=== PATIENT | male | born 1955 | race Caucasian/White ===

== ENCOUNTER → 2022-01-01 08:15 | Outpatient (BNVA) | payer OTHER, MEDICARE, SELFPAY | PROVIDERS: PCP Family Medicine; Visit Provider Psychiatry & Neurology Neurology | DX: G20 Parkinson's disease (principal); G47.52 REM sleep behavior disorder; R44.3 Hallucinations, unspecified | CPT/HCPCS: 99212 ==

== ENCOUNTER → 2022-06-25 08:12 | Outpatient (BNVA) | payer MEDICARE, SELFPAY | PROVIDERS: PCP Family Medicine; Visit Provider Psychiatry & Neurology Neurology | DX: G20 Parkinson's disease (principal); R44.3 Hallucinations, unspecified; G47.52 REM sleep behavior disorder | CPT/HCPCS: 99212 ==

== ENCOUNTER → 2023-01-31 11:13 | Outpatient (BNVA) | payer MEDICARE, SELFPAY | PROVIDERS: PCP Family Medicine; Visit Provider Psychiatry & Neurology Neurology | DX: G20 Parkinson's disease (principal); G47.52 REM sleep behavior disorder; R44.3 Hallucinations, unspecified | CPT/HCPCS: 99212 ==

== ENCOUNTER → 2023-04-08 12:59 | Outpatient (BNVA) | payer OTHER, SELFPAY | PROVIDERS: PCP Family Medicine; Visit Provider Psychiatry & Neurology Neurology | DX: G20 Parkinson's disease (principal); R44.3 Hallucinations, unspecified; G47.52 REM sleep behavior disorder ==

== ENCOUNTER 2024-03-18 10:52 | Outpatient (AMB) | payer OTHER, SELFPAY ==
--- NOTE | 2024-03-18 10:56 | MHC.OFFVIS ---
Vital Signs 03/18/24 10:57 BP 148/82 H Blood Pressure Location Rt brachial Position Sitting Respiration 16 Pulse 64 Pulse Source Palpation Intake Visit Reasons: Existing patient follow up visit - LVM w/add Intake Note: Pt presents for one year follow up for Parkinson's. Family Nurse Required: No Allergies No Known Allergies Allergy (Verified 03/18/24 10:56) Medication List - Last Reconciled 03/18/24 by Jalyn Ramirez MD carbidopa-levodopa 25-100 mg Patient takes it 6 times a day mecobalamin (vitamin B12) 1,000 mcg PO DAILY melatonin 3 mg PO BEDTIME PRN pramipexole 0.5 mg PO TID quetiapine 12.5 - 25 mg (0.5 - 1 x 25 mg) PO BEDTIME simvastatin 40 mg PO DAILY tamsulosin 0.4 mg PO BEDTIME HPI Comments Details: 68-year-old male calls for follow-up of Parkinson's disease, delusions, hallucinations associated with Parkinson's disease.He is at home with 40 hrs of help . No recent falls. He walks about 1000 ft a day with supervision and a walker. He needs help with showers , dressing. He needs help with using commode . He had a fall in Oct 2022 - had fracture of lumbar vertebrae( L3,5 sacrum) He had another fall in February 2023 he fractured his left hip. He did not need surgery . He did not respond to nuplazid as he had paradoxical reaction . He is doing ok with quetiapine 25 mg qhs . He still has freezing towards the end of the day - 7-9 pm. he is not sleeping well on melatonin 5 mg qhs Denies any OCD behaviors. [facility] Medical History (Updated 03/18/24 @ 11:19 by Jalyn Ramirez MD) Closed lumbar vertebral fracture Insomnia Parkinson's disease without dyskinesia Parkinson's disease dementia REM behavioral disorder Hyperlipidemia Hallucinations Parkinson's disease (tremor, stiffness, slow motion, unstable posture) Surgical History H/O hernia repair Family History Father Bladder cancer Prostate cancer Heart disease Social History Alcohol intake: current Alcohol intake frequency: holidays/special occasions only Alcohol type: beer Patient Tobacco Use Status: Never used Tobacco Physical Exam Vital Signs: Last Vital Signs Pulse 64 03/18/24 10:57 Resp 16 03/18/24 10:57 BP 148/82 H 03/18/24 10:57 Const General: cooperative, healthy appearing and no acute distress Nutritional Appearance: obese Orientation/consciousness: patient oriented x3 HEENT Head: Yes normal to inspection Neck Other: mild antecollis and restricted range of motion Neuro Other: Mild decreased blink and facial expression Voice- normal No tremors Fine Finger movements - mild decreased marqiuta l>R Alternating hand movements - decreased marquita Hand movements - decreased marquita Foot taps- decreased marquita No cog wheel rigidity General: patient oriented x3 and no focal motor deficits Cranial nerves: Yes CN's II-XII intact bilaterally, Yes Bilaterally intact EOM present, Yes Normal facial strength present and Yes Midline tongue present Assessment & Plan Assessment & Plan (1) Parkinson's disease dementia: Code(s): G20.A1 - Parkinson's disease without dyskinesia, without mention of fluctuations; F02.80 - Dementia in other diseases classified elsewhere, unspecified severity, without behavioral disturbance, psychotic disturbance, mood disturbance, and anxiety Category: Medical (2) Hallucinations: Code(s): R44.3 - Hallucinations, unspecified Category: Medical (3) REM behavioral disorder: Code(s): G47.52 - REM sleep behavior disorder Category: Medical (4) Parkinson's disease without dyskinesia: Code(s): G20.A1 - Parkinson's disease without dyskinesia, without mention of fluctuations Category: Medical (5) Insomnia: Code(s): G47.00 - Insomnia, unspecified Category: Medical (6) Closed lumbar vertebral fracture: Code(s): S32.009A - Unspecified fracture of unspecified lumbar vertebra, initial encounter for closed fracture Category: Medical Plan sinemet 25/100 1.5 tabs qid pramipexole 0.5 mg tid increase quetiapine 12.5 mg qam and 25 mg qhs Will trial mirtazapine 7.5 mg qh s Medications: New mirtazapine 7.5 mg PO BEDTIME 30 tabs 6RF Changed From quetiapine 12.5 - 25 mg (0.5 - 1 x 25 mg) PO BEDTIME 30 tabs 3RF To quetiapine 1/2 tab qam and 1 tab qhs orally; 60 tabs 3RF Coding Level of Care Code Est Pt Level 4 (69152) Complex EM visit Add On G2211 Diagnoses Parkinson's disease dementia G20.A1; F02.80 Hallucinations R44.3 REM behavioral disorder G47.52 Parkinson's disease without dyskinesia G20.A1 Insomnia G47.00 Closed lumbar vertebral fracture S32.009A
[2024-03-18 10:57] VITALS: BP 148/82; PULSE 64; RESP 16
== END 2024-03-18 11:30 | disposition home or self-care (01) ==
PROVIDERS: PCP Family Medicine; Visit Provider Psychiatry & Neurology Neurology
DX: G20.A1 Parkinson's disease without dyskinesia, without mention of fluctuations (principal); F02.80 Dementia in other diseases classified elsewhere, unspecified severity, without behavioral disturbance, psychotic disturbance, mood disturbance, and anxiety; R44.3 Hallucinations, unspecified; G47.52 REM sleep behavior disorder; G47.00 Insomnia, unspecified; S32.009A Unspecified fracture of unspecified lumbar vertebra, initial encounter for closed fracture
CPT/HCPCS: 99214; G2211

== ENCOUNTER → 2024-03-18 10:52 | Outpatient (BNVA) | payer OTHER, SELFPAY | PROVIDERS: PCP Family Medicine; Visit Provider Psychiatry & Neurology Neurology ==

== ENCOUNTER 2024-09-28 12:23 | Outpatient (AMB) | payer OTHER, SELFPAY ==
--- NOTE | 2024-09-28 12:33 | A.OFFVIS_ITS ---
Intake Visit Reasons: Existing patient follow up visit Intake Note: Patient presents for follow up Allergies No Known Allergies Allergy (Verified 09/28/24 12:36) Medication List - Last Reconciled 09/28/24 by Jalyn Ramirez MD carbidopa-levodopa 25-100 mg Patient takes it 6 times a day docusate sodium 100 mg PO DAILY mecobalamin (vitamin B12) 1,000 mcg PO DAILY melatonin 3 mg PO BEDTIME PRN mirtazapine 7.5 mg PO BEDTIME pramipexole 0.5 mg PO TID quetiapine 1 tab qhs orally; simvastatin 40 mg PO DAILY tamsulosin 0.4 mg PO BEDTIME HPI Comments Details: 69-year-old male calls for follow-up of Parkinson's disease, delusions, hallucinations associated with Parkinson's disease.He is at home with 40 hrs of help .He walks with a walker and 2 people assisting in his house and outside . No recent falls. He is very sensitive to medications He reports intermittent right abdominal pain - Aggression with quetiapine in the morning so he is on 25 mg qhs only . He is on mirtazapine 7.5mg 1/2 tab at bedtime. He walks about 1000 ft a day with supervision and a walker. He needs help with showers , dressing. He needs help with using commode . He did not respond to nuplazid as he had paradoxical reaction . He still has freezing towards the end of the day - 7-9 pm. he is not sleeping well on melatonin 5 mg qhs Denies any OCD behaviors. [facility] Medical History Closed lumbar vertebral fracture Insomnia Parkinson's disease without dyskinesia Parkinson's disease dementia REM behavioral disorder Hyperlipidemia Hallucinations Parkinson's disease (tremor, stiffness, slow motion, unstable posture) Surgical History H/O hernia repair Family History Father Bladder cancer Prostate cancer Heart disease Social History Alcohol intake: current Alcohol intake frequency: holidays/special occasions only Alcohol type: beer Patient Tobacco Use Status: Never used Tobacco Physical Exam Const General: cooperative, healthy appearing and no acute distress Orientation/consciousness: patient oriented x3 HEENT Head: Yes normal to inspection Neck Other: mild antecollis and restricted range of motion Neuro Other: Mild decreased blink and facial expression Voice- normal No tremors Fine Finger movements - mild decreased marquita l>R Alternating hand movements - decreased marquita Hand movements - decreased marquita Foot taps- decreased marquita No cog wheel rigidity General: patient oriented x3 and no focal motor deficits Cranial nerves: Yes CN's II-XII intact bilaterally, Yes Bilaterally intact EOM present, Yes Normal facial strength present and Yes Midline tongue present Assessment & Plan Assessment & Plan (1) Parkinson's disease dementia: Code(s): G20.A1 - Parkinson's disease without dyskinesia, without mention of fluctuations; F02.80 - Dementia in other diseases classified elsewhere, unspecified severity, without behavioral disturbance, psychotic disturbance, mood disturbance, and anxiety Category: Medical Qualifiers: Dementia behavioral or psychological symptom: with psychotic disturbance Dementia severity: moderate Qualified Code(s): G20.A1 - Parkinson's disease without dyskinesia, without mention of fluctuations; F02.B2 - Dementia in other diseases classified elsewhere, moderate, with psychotic disturbance (2) Hallucinations: Code(s): R44.3 - Hallucinations, unspecified Category: Medical (3) REM behavioral disorder: Code(s): G47.52 - REM sleep behavior disorder Category: Medical (4) Parkinson's disease without dyskinesia: Code(s): G20.A1 - Parkinson's disease without dyskinesia, without mention of fluctuations Category: Medical Qualifiers: Fluctuating manifestations: with fluctuating manifestations Qualified Code(s): G20.A2 - Parkinson's disease without dyskinesia, with fluctuations Plan sinemet 25/100 1.5 tabs qid pramipexole 0.5 mg tid [id number] mg qhs mirtazapine 7.5 - 1/2 tab mg qh s He is on palliative care Medications: Changed From quetiapine 1/2 tab qam and 1 tab qhs orally; 60 tabs 3RF To quetiapine 1 tab qhs orally; 60 tabs 3RF Discontinued mirtazapine Discontinued Reason: Duplicate 7.5 mg PO BEDTIME 30 tabs 6RF Coding Level of Care Code Est Pt Level 4 (86007) Complex EM visit Add On G2211 Diagnoses 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
== END 2024-09-28 13:17 | disposition home or self-care (01) ==
PROVIDERS: PCP Family Medicine; Visit Provider Psychiatry & Neurology Neurology
DX: G20.A1 Parkinson's disease without dyskinesia, without mention of fluctuations (principal); F02.B2 Dementia in other diseases classified elsewhere, moderate, with psychotic disturbance; R44.3 Hallucinations, unspecified; G47.52 REM sleep behavior disorder; G20.A2 Parkinson's disease without dyskinesia, with fluctuations
CPT/HCPCS: 99214

== ENCOUNTER → 2024-09-28 12:23 | Outpatient (BNVA) | payer OTHER, SELFPAY | PROVIDERS: PCP Family Medicine; Visit Provider Psychiatry & Neurology Neurology | DX: G20.A1 Parkinson's disease without dyskinesia, without mention of fluctuations (principal); F02.80 Dementia in other diseases classified elsewhere, unspecified severity, without behavioral disturbance, psychotic disturbance, mood disturbance, and anxiety; R44.3 Hallucinations, unspecified; G47.52 REM sleep behavior disorder; G47.00 Insomnia, unspecified; S32.009A Unspecified fracture of unspecified lumbar vertebra, initial encounter for closed fracture ==

== ENCOUNTER 2025-04-09 14:54 | Outpatient (AMB) | payer MEDICARE, SELFPAY ==
--- NOTE | 2025-04-09 14:51 | A.OFFVIS_ITS ---
Intake Visit Reasons: Follow up Intake Note: Patient following up for parkinson. med adjustment for quetiapine Manager Engine Required: No Accompanied by: Self / Same As Patient Allergies No Known Allergies Allergy (Verified 04/09/25 14:54) HPI Comments Details: 69-year-old male calls for follow-up of Parkinson's disease, delusions, hallucinations associated with Parkinson's disease. He has more cognitive issues and is slower. Hallucinations are the same He is at home with 40 hrs of help .He walks with a walker and 2 people assisting in his house and outside . No recent falls. He is very sensitive to medications He reports intermittent right abdominal pain - Aggression with quetiapine in the morning so he is on 25 mg qhs only . He is on mirtazapine 7.5mg 1/2 tab at bedtime. He needs help with showers , dressing. He needs help with using commode . He did not respond to nuplazid as he had paradoxical reaction . He still has freezing towards the end of the day - 7-9 pm. he is not sleeping well on melatonin 5 mg qhs Denies any OCD behaviors. [facility] Medical History Closed lumbar vertebral fracture Insomnia Parkinson's disease without dyskinesia Parkinson's disease dementia REM behavioral disorder Hyperlipidemia Hallucinations Parkinson's disease (tremor, stiffness, slow motion, unstable posture) Surgical History H/O hernia repair Family History Father Bladder cancer Prostate cancer Heart disease Social History Alcohol intake: current Alcohol intake frequency: holidays/special occasions only Alcohol type: beer Patient Tobacco Use Status: Never used Tobacco Physical Exam Const General: cooperative Telehealth Telehealth Telehealth Platform: Telephone Location of provider rendering services: practice address Location of patient: address on file Patient Identification confirmed using: Name, : Yes Telehealth method: voice only Patient verbally consented to treatment: Yes Patient verbally consented to billing insurance company: Yes Patient informed of any privacy concerns related to visit: Yes Minutes spent on Phone/Video with Pt.: 16 Assessment & Plan Assessment & Plan (1) Parkinson's disease dementia: Code(s): G20.A1 - Parkinson's disease without dyskinesia, without mention of fluctuations; F02.80 - Dementia in other diseases classified elsewhere, unspecified severity, without behavioral disturbance, psychotic disturbance, mood disturbance, and anxiety Category: Medical Qualifiers: Dementia severity: moderate Dementia behavioral or psychological sympt om: with psychotic disturbance Qualified Code(s): G20.A1 - Parkinson's disease without dyskinesia, without mention of fluctuations; F02.B2 - Dementia in other diseases classified elsewhere, moderate, with psychotic disturbance (2) Hallucinations: Code(s): R44.3 - Hallucinations, unspecified Category: Medical (3) REM behavioral disorder: Code(s): G47.52 - REM sleep behavior disorder Category: Medical (4) Parkinson's disease without dyskinesia: Code(s): G20.A1 - Parkinson's disease without dyskinesia, without mention of fluctuations Category: Medical Qualifiers: Fluctuating manifestations: with fluctuating manifestations Qualified Code(s): G20.A2 - Parkinson's disease without dyskinesia, with fluctuations Plan sinemet 25/100 1.5 tabs qid pramipexole 0.5 mg tid mg qhs mirtazapine 7.5 mg qh s He is on palliative care Coding Level of Care Code Tele Est Pt Level 4 (07420) Diagnoses 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
--- OUTSIDE RECORDS SUMMARY | 2025-04-09 14:55 | XMS_ITS | Patient Health Record ---
Author Organization [facility] [place] Address [address] [place] [address] Care Team Providers Care Lumber Loader Name Role Phone Khurram Marino MD Primary Care Provider Unava ilable Black, Michaela Unavailable [phone] Allergies No Known Allergies Reason For Referral No Information Medications Medication SIG (Take, Route, Frequency, Duration) Notes Start Date End Date Status Pramipexole Dihydrochloride 0.75 MG 1 tablet Orally three times a day Active SEROquel 25 MG 1 tablet at bedtime Orally Once a day for 30 day(s) Active Carbidopa-Levodopa 25-100 MG 1 tablet Orally six times a day Active Nuplazid 34 MG 1 capsule Orally every other day Not-Taking Simvastatin 40 MG 1 tablet in the evening Orally Once a day for 30 day(s) Active Tamsulosin HCl 0.4 MG 1 capsule Orally O nce a day for 30 day(s) Active Immunizations Vaccine Route Administration Date Status Comme nts COVID-19 Pfizer BioNTech Vaccine Unknown 09/01/2021 Administered 1st 01/28/2021 2nd 02/18/2021 Social History Tobacco Use: Social History Observation Description Date Details (start date - stop date) Never Smoker NA - NA Tobacco Use/Smoking Question Answer Notes Are you a: nonsmoker Additional Findings: Tobacco Non-User Current no n-smoker Alcohol Screen Question Answer Notes Did you have a drink containing alcohol in the p ast year? No Points 0 Interpretation Negative Tobacco use other than smoking: Question Answer Notes Are you an other tobacco user? No Problems Problem Type SNOMED Code ICD Code Onset Dates Problem Status W/U Status Risk Notes Problem Parkinson (86831734) Parkinson's disease (G20) Active confirmed Vital Signs Blood pressure diastolic 78 mm Hg 04/01/2025 Height 2dc29ly in 04/01/2025 Blood pressure systolic 118 mm Hg 04/01/2025 Weight 143 lbs 04/01/2025 BMI 20.52 kg/m2 04/01/2025 Procedures Procedure Date Ordered Date Performed Result Body Sit e 27021-PQWCNVE NAIL, 6 OR MORE 07/13/2024 N/A 05491-ZKYABZS NAIL, 6 OR MORE 11/12/2024 N/A 19112-PVROWKD NAIL, 6 OR MORE 04/01/2025 N/A 53223-Tistuqdo Plate 04/01/2025 N/A Encounters Encounter Location Date Provider Diagnosis [address] [address] 07/13/2024 Michaela Black Tinea unguium B35.1 ; Pain in right toe(s) M79.674 and Pain in left toe(s) M79.[address] [address] 11/12/2024 Michaela Black Tinea unguium B35.1 ; Pain in right toe(s) M79.674 and Pain in left toe(s) M79.[address] [address] 04/01/2025 Michaela Black Tinea unguium B35.1 ; Ingrown nail L60.0 ; Pain in right toe(s) M79.674 ; Pain in left toe(s) M79.675 and Parkinson's disease G20 [address] [address] 07/13/2024 Michaela Black Assessments Encounter Date Diagnosis (ICD Code) Assessment Notes Treatment Notes Treatment Clinical Notes Section Notes 07/13/2024 Tinea unguium (ICD-10 - B35.1) 07/13/2024 Pain in right toe(s) (ICD-10 - M79.674) 04/01/2025 Tinea unguium (ICD-10 - B35.1) 11/12/2024 Tinea unguium (ICD-10 - B35.1) 11/12/2024 Pain in right toe(s) (ICD-10 - M79.674) 04/01/2025 Ingrown nail (ICD-10 - L60.0) 11/12/2024 Pain in left toe(s) (ICD-10 - M79.675) 04/01/2025 Pain in right toe(s) (ICD-10 - M79.674) 07/13/2024 Pain in left toe(s) (ICD-10 - M79.675) 04/01/2025 Pain in left toe(s) (ICD-10 - M79.675) 04/01/2025 Parkinson's disease (ICD-10 - G20) Plan Of Treatment Pending Test Test Name Order Date X ray : Foot, left 3V 10/05/2021 X ray : Foot, right 3V 10/05/2021 38592-CJSEMXQ NAIL, 6 OR MORE 10/05/2021 35805-MEWOJJJ NAIL, 6 OR MORE 01/25/2022 60762-ONPNILP NAIL, 6 OR MORE 04/23/2022 28517-UMJBITU NAIL, 6 OR MORE 07/30/2022 68757-QSATGSV NAIL, 6 OR MORE 12/20/2022 95045-FZZJKDN NAIL, 6 OR MORE 03/28/2023 85902-KKYXKGO NAIL, 6 OR MORE 07/25/2023 54882-EIHBTVD NAIL, 6 OR MORE 11/28/2023 53689-NYZZQWA NAIL, 6 OR MORE 03/05/2024 21203-YWYBGNK NAIL, 6 OR MORE 07/13/2024 03075-UKIFBBQ NAIL, 6 OR MORE 11/12/2024 09681-GKFZYEF NAIL, 6 OR MORE 04/01/2025 89310-Xnetagfc Plate 04/01/2025 41828-Ttdtsont Plate 01/25/2022 98597-Uodpttxc Plate 10/05/2021 73217-Mcnafjgb Plate Each Additional 07517- Debride <25 sq cm 12/20/2022 14986- Debride <25 sq cm 10/05/2021 38529- Debride <25 sq cm 11/09/2021 47744- Debride <25 sq cm 11/30/2021 51022- Debride <25 sq cm 01/25/2022 18938- Debride <25 sq cm 04/23/2022 20913 - Tenotomy, open flexor 05/17/2022 06276 - Tenotomy, open flexor 02/15/2022 Next Appt Details Provider Name:Michaela Bravo , 07/29/2025 11:30:00 AM, [address] [place], [address], Insurance Providers Payer Name Payer Address Payer Phone Subscriber Number Group Number Insured Name Patient Relationship to Insured Coverage Start Date Coverage End Date [employer] [address] [place] [address] [phone] [id number] Wero Antony Self - patient is the insured Medical (General) History Medical History History ICD Code Cholesterol Parkinsons disease Measles Mumps Chicken pox Colon Dialated 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 12 Other hammer toe(s) (acquired), right fo ot M20.41 Other hammer toe(s) (acquired), left kailey t M20.42 Surgical History Surgery Date(Month/Year) hernia Surgery Hospitalization History Reason Date(Month/Year) [facility]- Colon Dialated 03/27 [facility]- fractures to left hip 02/2023 [facility]- fell, 3 broen vertebrae 10/19-10/31
== END 2025-04-09 15:03 | disposition home or self-care (01) ==
PROVIDERS: PCP Family Medicine; Visit Provider Psychiatry & Neurology Neurology
DX: G20.A1 Parkinson's disease without dyskinesia, without mention of fluctuations (principal); F02.B2 Dementia in other diseases classified elsewhere, moderate, with psychotic disturbance; R44.3 Hallucinations, unspecified; G47.52 REM sleep behavior disorder; G20.A2 Parkinson's disease without dyskinesia, with fluctuations
CPT/HCPCS: 99214

== ENCOUNTER → 2025-04-09 14:54 | Outpatient (BNVA) | payer MEDICARE, SELFPAY | PROVIDERS: PCP Family Medicine; Visit Provider Psychiatry & Neurology Neurology ==